=== PATIENT | male | born 1965 | race Caucasian/White ===

== ENCOUNTER 2019-08-09 21:26 | Inpatient (IN) | payer BC, OTHER ==
--- NOTE | 2019-08-09 22:04 | CR ---
INDICATION: Coughing up blood TECHNIQUE: Two view chest. FINDINGS: The lungs are clear. The heart, mediastinum and pulmonary vessels are of normal size. There is no evidence of pleural disease. Low lung volumes. Basilar atelectasis. IMPRESSION: Basilar atelectasis Dictated by Adrianna Medina MD @ Aug 09 2019 10:03PM Signed by Dr. Adrianna Medina @ Aug 09 2019 10:03PM
--- NOTE | 2019-08-09 22:42 | EDM.PDOC ---
ED HPI GENERAL MEDICAL PROBLEM - General Chief Complaint: Respiratory Problem Stated Complaint: COUGH Time Seen by Provider: 08/09/19 22:32 Source of Information: Reports: Patient History Limitations: Reports: No Limitations - History of Present Illness INITIAL COMMENTS - FREE TEXT/NARRATIVE: 53-year-old gentleman presents emergency room chief complaint of coughing for a week and a low-grade fever. Patient states he has had a history of pneumonias in the past. He denies any travel history, denies any exposure to any sick people. Duration: Week(s):, Getting Worse Location: Reports: Chest Quality: Reports: Ache Severity: Moderate Improves with: Reports: None Worsens with: Reports: None Associated Symptoms: Reports: Cough, Weakness lungs Pain Score (Numeric/FACES): 5 - Related Data Allergies Allergy/AdvReac Type Severity Reaction Status Date / Time bacitracin Allergy Hives Verified 08/09/19 22:09 diphenhydramine Allergy Anaphylactic Verified 08/09/19 22:09 [From Benadryl] Shock lidocaine Allergy Hives Verified 08/09/19 22:09 Home Meds: Home Meds Ibuprofen mg PO ASDIRECTED PRN 08/09/19 [History] Omeprazole Magnesium [Prilosec Otc] 20 mg PO DAILY 08/09/19 [History] Past Medical History - Infectious Disease History Infectious Disease History: Reports: Chicken Pox - Past Surgical History GI Surgical History: Reports: Appendectomy Musculoskeletal Surgical History: Reports: Other (See Below) Other Musculoskeletal Surgeries/Procedures:: back surgery. right foot surgery Social & Family History - Family History Family Medical History: Noncontributory - Tobacco Use Smoking Status *Q: Never Smoker - Caffeine Use Caffeine Use: Reports: Soda - Recreational Drug Use Recreational Drug Use: No ED ROS GENERAL - Review of Systems Review Of Systems: See Below Constitutional: Reports: No Symptoms. Denies: Fever HEENT: Reports: No Symptoms. Denies: Contact Lenses Respiratory: Reports: No Symptoms, Shortness of Breath Cardiovascular: Reports: No Symptoms Endocrine: Reports: No Symptoms GI/Abdominal: Reports: No Symptoms : Reports: No Symptoms Musculoskeletal: Reports: No Symptoms Skin: Reports: No Symptoms Neurological: Reports: No Symptoms Psychiatric: Reports: No Symptoms, Other Hematologic/Lymphatic: Reports: No Symptoms Immunologic: Reports: No Symptoms ED EXAM, GENERAL - Physical Exam Exam: See Below Exam Limited By: No Limitations General Appearance: Alert, WD/WN, No Apparent Distress Ears: Normal External Exam, Normal Canal, Normal TMs Ear Exam: Bilateral Ear: Auricle Normal, Canal Normal Nose: Normal Inspection, Normal Mucosa Throat/Mouth: Normal Inspection, Normal Lips, Normal Oropharynx Head: Atraumatic, Normocephalic Neck: Normal Inspection, Supple Respiratory/Chest: No Respiratory Distress, Lungs Clear, Normal Breath Sounds, No Accessory Muscle Use Cardiovascular: Normal Peripheral Pulses, Regular Rate, Rhythm, No JVD, No Murmur GI/Abdominal: Normal Bowel Sounds, Soft, Non-Tender, No Distention (Male) Exam: Deferred Rectal (Males) Exam: Deferred Back Exam: Normal Inspection, Full Range of Motion Extremities: Normal Inspection, Normal Range of Motion, No Pedal Edema, Normal Capillary Refill Neurological: Alert, Oriented, CN II-XII Intact, Normal Reflexes Psychiatric: Normal Affect, Normal Mood Skin Exam: Warm, Dry, Intact Course - Vital Signs Text/Narrative:: Presents with a history of a cough. States he has pneumonia in the past. Patient states he been coughing for over a week. Patient has not been out of the country no recent travel. Patient came to the emergency room tachycardic found to have a white count of 27,000 with a temperature 101. Patient had a lactate level that was 1.4 and he was given 2 L of IV fluids. Patient's blood pressure was low in the 80s patient started on antibiotics Levaquin. Chest x- ray was performed which was negative. CT scan of the chest shows a left lower lobe consolidation/pneumonia. Patient's urine has been negative. I have spoken with Dr. Bill who is agreed to admit the patient to the unit ICU. Patient also has coronavirus test that is pending at this time. Last Recorded V/S: Last Vital Signs Temp 100.6 F 08/10/19 00:56 Pulse 103 H 08/10/19 00:56 Resp 18 08/10/19 00:56 BP 101/66 08/10/19 00:56 Pulse Ox 96 08/10/19 00:56 - Orders/Labs/Meds Orders: Active Orders 24 hr Category Date Time Status EKG Documentation Completion [RC] STAT Care 08/09/19 23:38 Active CULTURE BLOOD [BC] Stat Lab 08/09/19 23:45 Received CULTURE BLOOD [BC] Stat Lab 08/09/19 23:55 Received Levofloxacin/Dextrose 5%-Water [Levaquin in D5W 750 MG/ Med 08/10/19 01:37 Active 150 ML] 750 mg Premix Bag 1 bag IV ONETIME Sodium Chloride 0.9% [Normal Saline] 1,000 ml Med 08/09/19 22:45 Active IV ASDIRECTED Sodium Chloride 0.9% [Normal Saline] 1,000 ml Med 08/10/19 00:30 Active IV ASDIRECTED Sodium Chloride 0.9% [Normal Saline] 1,000 ml Med 08/10/19 02:00 Active IV ASDIRECTED Blood Culture x2 Reflex Set [OM.PC] Stat Oth 08/09/19 23:42 Ordered Isolation [COMM] Routine Oth 08/09/19 21:29 Active Medication Orders Sodium Chloride (Normal Saline) 1,000 mls @ 500 mls/hr IV ASDIRECTED [facility] Last Admin: 08/09/19 23:01 Dose: 500 mls/hr Sodium Chloride (Normal Saline) 1,000 mls @ 999 mls/hr IV ASDIRECTED [facility] Last Admin: 08/10/19 00:28 Dose: 999 mls/hr Levofloxacin/Dextrose 750 mg/ (Premix) 150 mls @ 100 mls/hr IV ONETIME ONE Stop: 08/10/19 03:06 Sodium Chloride (Normal Saline) 1,000 mls @ 999 mls/hr IV ASDIRECTED [facility] Labs: Laboratory Tests 08/09/19 08/09/19 08/09/19 Range/Units 23:02 23:02 23:02 WBC 27.85 H (4.0-11.0) K/uL RBC 5.03 (4.50-5.90) M/uL Hgb 16.5 (13.0-17.0) g/dL Hct 46.8 (38.0-50.0) % MCV 93.0 (80.0-98.0) fL MCH 32.8 H (27.0-32.0) pg MCHC 35.3 (31.0-37.0) g/dL RDW Std Deviation 42.5 (28.0-62.0) fl RDW Coeff of Hussain 13 (11.0-15.0) % Plt Count 188 (150-400) K/uL MPV 9.80 (7.40-12.00) fL Neut % (Auto) 89.7 H (48.0-80.0) % Lymph % (Auto) 4.2 L (16.0-40.0) % Randall % (Auto) 6.0 (0.0-15.0) % Eos % (Auto) 0.0 (0.0-7.0) % Baso % (Auto) 0.1 (0.0-1.5) % Neut # (Auto) 25.0 H (1.4-5.7) K/uL Lymph # (Auto) 1.2 (0.6-2.4) K/uL Randall # (Auto) 1.7 H (0.0-0.8) K/uL Eos # (Auto) 0.0 (0.0-0.7) K/uL Baso # (Auto) 0.0 (0.0-0.1) K/uL Nucleated RBC % 0.0 /100WBC Nucleated RBCs # 0 K/uL Lactate (0.20-2.00) mmol/L Sodium 134 L (136-148) mmol/L Potassium 3.8 (3.5-5.1) mmol/L Chloride 97 L (98-107) mmol/L Carbon Dioxide 27.5 (21.0-32.0) mmol/L BUN 20 H (7.0-18.0) mg/dL Creatinine 1.6 H (0.8-1.3) mg/dL Est Cr Clr Drug Dosing 57.26 mL/min Estimated GFR (MDRD) 45.1 ml/min Glucose 118 H (74-106) mg/dL Calcium 9.4 (8.5-10.1) mg/dL Total Bilirubin 1.4 H (0.2-1.0) mg/dL AST 10 L (15-37) IU/L ALT 19 (14-63) IU/L Alkaline Phosphatase 132 H (46-116) U/L Lactate Dehydrogenase 181 (81-234) U/L Total Protein 7.8 (6.4-8.2) g/dL Albumin 3.3 L (3.4-5.0) g/dL Globulin 4.5 H (2.6-4.0) g/dL Albumin/Globulin Ratio 0.7 L (0.9-1.6) Urine Color Urine Appearance Urine pH (5.0-8.0) Ur Specific [place] (1.001-1.035) Urine Protein (NEGATIVE) mg/dL Urine Glucose (UA) (NEGATIVE) mg/dL Urine Ketones (NEGATIVE) mg/dL Urine Occult Blood (NEGATIVE) Urine Nitrite (NEGATIVE) Urine Bilirubin (NEGATIVE) Urine Urobilinogen (<2.0) EU/dL Ur Leukocyte Esterase (NEGATIVE) Urine RBC (0-2/HPF) Urine WBC (0-5/HPF) Ur Epithelial Cells (NONE-FEW) Urine Bacteria (NEGATIVE) Urine Mucus (NONE-MOD) 08/09/19 08/10/19 Range/Units 23:55 00:03 WBC (4.0-11.0) K/uL RBC (4.50-5.90) M/uL Hgb (13.0-17.0) g/dL Hct (38.0-50.0) % MCV (80.0-98.0) fL MCH (27.0-32.0) pg MCHC (31.0-37.0) g/dL RDW Std Deviation (28.0-62.0) fl RDW Coeff of Hussain (11.0-15.0) % Plt Count (150-400) K/uL MPV (7.40-12.00) fL Neut % (Auto) (48.0-80.0) % Lymph % (Auto) (16.0-40.0) % Randall % (Auto) (0.0-15.0) % Eos % (Auto) (0.0-7.0) % Baso % (Auto) (0.0-1.5) % Neut # (Auto) (1.4-5.7) K/uL Lymph # (Auto) (0.6-2.4) K/uL Randall # (Auto) (0.0-0.8) K/uL Eos # (Auto) (0.0-0.7) K/uL Baso # (Auto) (0.0-0.1) K/uL Nucleated RBC % /100WBC Nucleated RBCs # K/uL Lactate 1.4 (0.20-2.00) mmol/L Sodium (136-148) mmol/L Potassium (3.5-5.1) mmol/L Chloride (98-107) mmol/L Carbon Dioxide (21.0-32.0) mmol/L BUN (7.0-18.0) mg/dL Creatinine (0.8-1.3) mg/dL Est Cr Clr Drug Dosing mL/min Estimated GFR (MDRD) ml/min Glucose (74-106) mg/dL Calcium (8.5-10.1) mg/dL Total Bilirubin (0.2-1.0) mg/dL AST (15-37) IU/L ALT (14-63) IU/L Alkaline Phosphatase (46-116) U/L Lactate Dehydrogenase (81-234) U/L Total Protein (6.4-8.2) g/dL Albumin (3.4-5.0) g/dL Globulin (2.6-4.0) g/dL Albumin/Globulin Ratio (0.9-1.6) Urine Color DARK YELLOW Urine Appearance CLEAR Urine pH 6.0 (5.0-8.0) Ur Specific [place] >= 1.030 (1.001-1.035) Urine Protein 100 H (NEGATIVE) mg/dL Urine Glucose (UA) NEGATIVE (NEGATIVE) mg/dL Urine Ketones 15 H (NEGATIVE) mg/dL Urine Occult Blood TRACE-INTACT H (NEGATIVE) Urine Nitrite NEGATIVE (NEGATIVE) Urine Bilirubin NEGATIVE (NEGATIVE) Urine Urobilinogen 2.0 H (<2.0) EU/dL Ur Leukocyte Esterase NEGATIVE (NEGATIVE) Urine RBC 0-2 (0-2/HPF) Urine WBC 0-1 (0-5/HPF) Ur Epithelial Cells RARE (NONE-FEW) Urine Bacteria RARE (NEGATIVE) Urine Mucus LIGHT (NONE-MOD) Meds: Medications Generic Name Dose Route Start Last Admin Trade Name Freq PRN Reason Stop Dose Admin Sodium Chloride 1,000 mls @ 500 mls/hr 08/09/19 22:45 08/09/19 23:01 Normal Saline IV 500 mls/hr ASDIRECTED RADHA Administration Sodium Chloride 1,000 mls @ 999 mls/hr 08/10/19 00:30 08/10/19 00:28 Normal Saline IV 999 mls/hr ASDIRECTED RADHA Administration Levofloxacin/Dextrose 750 mg/ 150 mls @ 100 mls/hr 08/10/19 01:37 Premix IV 08/10/19 03:06 ONETIME ONE Sodium Chloride 1,000 mls @ 999 mls/hr 08/10/19 02:00 Normal Saline IV ASDIRECTED RADHA Discontinued Medications Generic Name Dose Route Start Last Admin Trade Name Magi PRN Reason Stop Dose Admin Iopamidol 100 ml 08/10/19 00:15 08/10/19 00:24 Isovue-370 (76%) IVPUSH 08/10/19 00:16 100 ml ONETIME STA Administration Ketorolac Tromethamine 30 mg 08/09/19 23:11 08/09/19 23:12 Toradol IVPUSH 08/09/19 23:12 30 mg ONETIME ONE Administration Departure - Departure Time of Disposition: 02:00 Disposition: Admitted As Inpatient 64 Condition: Fair Clinical Impression: Hypotension Pneumonia Qualifiers: Laterality: left Lung location: lower lobe of lung - Discharge Information Referrals: Keaton Zhou MD [Primary Care Provider] - Forms: ED Department Discharge Sepsis Event Note - Evaluation Sepsis Screening Result: Possible Sepsis Risk - Focused Exam Vital Signs: Vital Signs Temp Temp Pulse Resp BP Pulse Ox 08/10/19 00:56 100.6 F 103 H 18 101/66 96 08/10/19 00:33 99/58 L 08/10/19 00:01 101.4 F H 08/09/19 23:43 98.8 F 109 H 20 91/49 L 92 L 08/09/19 22:10 100.7 F H 127 H 18 112/66 96 Date Exam was Performed: 08/10/19 Time Exam was Performed: 01:54 - My Orders Last 24 Hours: My Active Orders 08/09/19 22:45 Sodium Chloride 0.9% [Normal Saline] 1,000 ml IV ASDIRECTED 08/09/19 23:38 EKG Documentation Completion [RC] STAT 08/09/19 23:42 Blood Culture x2 Reflex Set [OM.PC] Stat 08/09/19 23:45 CULTURE BLOOD [BC] Stat 08/09/19 23:55 CULTURE BLOOD [BC] Stat 08/10/19 00:30 Sodium Chloride 0.9% [Normal Saline] 1,000 ml IV ASDIRECTED 08/10/19 01:37 Levofloxacin/Dextrose 5%-Water [Levaquin in D5W 750 MG/150 ML] 750 mg Premix Bag 1 bag IV ONETIME 08/10/19 02:00 Sodium Chloride 0.9% [Normal Saline] 1,000 ml IV ASDIRECTED - Assessment/Plan Last 24 Hours: My Active Orders 08/09/19 22:45 Sodium Chloride 0.9% [Normal Saline] 1,000 ml IV ASDIRECTED 08/09/19 23:38 EKG Documentation Completion [RC] STAT 08/09/19 23:42 Blood Culture x2 Reflex Set [OM.PC] Stat 08/09/19 23:45 CULTURE BLOOD [BC] Stat 08/09/19 23:55 CULTURE BLOOD [BC] Stat 08/10/19 00:30 Sodium Chloride 0.9% [Normal Saline] 1,000 ml IV ASDIRECTED 08/10/19 01:37 Levofloxacin/Dextrose 5%-Water [Levaquin in D5W 750 MG/150 ML] 750 mg Premix Bag 1 bag IV ONETIME 08/10/19 02:00 Sodium Chloride 0.9% [Normal Saline] 1,000 ml IV ASDIRECTED
[2019-08-09] MEDS ORDERED: Sodium Chloride 0.9% 1,000 ML IV SCH (22:45)
[2019-08-09] MEDS ORDERED: Ketorolac 30 MG/ML SDV IM ONE (23:06)
[2019-08-09] MEDS ORDERED: Ketorolac 30 MG/ML SDV IVPUSH ONE (23:11)
[2019-08-09 23:25] LABS: CARBON DIOXIDE,CO2 27.5 mmol/L (21.0-32.0); POTASSIUM,K 3.8 mmol/L (3.5-5.1)
[2019-08-10] MEDS ORDERED: Iopamidol 755 Mg/ML 100 ML Bottle IVPUSH STA (00:15)
[2019-08-10] MEDS ORDERED: Sodium Chloride 0.9% 1,000 ML IV SCH ×2 (00:30→02:00)
[2019-08-10] MEDS ORDERED: Sodium Chloride 0.9% 1,000 ML IV ONE (01:00)
[2019-08-10] MEDS ORDERED: Levofloxacin/Dextrose 5%-Water 750 MG in Premix Bag 1 BAG IV ONE (01:37)
--- NOTE | 2019-08-10 01:49 | CT ---
INDICATION: Chest pain. Hemoptysis. TECHNIQUE: CT chest pulmonary PE protocol acquired with IV contrast. 100 mL of Isovue 370 administered. COMPARISON: None FINDINGS: Cardiovascular structures: Limited opacification of some distal segmental and subsegmental pulmonary arteries. No large, central or proximal segmental pulmonary embolus. Normal cardiac size and aortic caliber. Mediastinum and bea: Mildly prominent and borderline subcarinal, azygoesophageal and left hilar lymph nodes, measuring up to 1.2 cm in short axis. A small to moderate hiatal hernia. Small fluid in the distal esophagus suggestive of reflux. Lungs: Dense consolidation in the posterior left lower lobe, with air bronchograms, and ill-defined adjacent ground-glass infiltrates, consistent with pneumonia. Foci of subsegmental atelectasis. Pleura and pericardium: No pleural effusions. Mild anterior pericardial thickening versus tiny fluid. Chest wall and axilla: No mass or adenopathy. Upper abdomen: Mild splenomegaly measuring 13.8 cm anteroposteriorly. Bones: No significant findings. IMPRESSION: No CT evidence of a large, central or proximal segmental pulmonary embolus. Left lower lobe pneumonia. Dictated by Andrei Park MD @ 08/10/2019 1:45:14 AM Please note that all CT scans at this facility use dose modulation, iterative reconstruction, and/or weight-based dosing when appropriate to reduce radiation dose to as low as reasonably achievable. Dictated by: Andrei Park MD @ 08/10/2019 01:47:14 (Electronically Signed)
[2019-08-10] MEDS ORDERED: Acetaminophen 325 MG Tab PO PRN (03:34)
[2019-08-10] MEDS ORDERED: Acetaminophen 325 MG Tab ONE (03:39)
[2019-08-10] MEDS: Sodium Chloride 0.9% 1,000 ML IV SCH ×3 (03:49→19:51)
--- NOTE | 2019-08-10 04:50 | PN ---
THC Physician - Brief Progress [id number]/16/2020 04:47[facility] [place], [place] - [place] ([place]ETH SMITHDate of Service 08/10/2019 04:47HPI/Events of Note eICUSeen on cameraSpoke w RNBP 95/55, sat 94 on NCPt w PNAGot 3L bolusLA normalOn RACan start levo if MaP <65Given levaquin once day team can decide on further abxInterventions Intermediate-Resp iratory distress - evaluation and managementElectronically Signed by: Alexandre Yip) on 0 04:49
[2019-08-10] MEDS: Enoxaparin 40 MG/0.4 ML Syringe SUBCUT SCH (05:12)
--- NOTE | 2019-08-10 05:30 | PCM.HP.2 ---
H&P History of Present Illness - General Date of Service: 08/10/19 Admit Problem/Dx: Admission Diagnosis/Problem Admission Diagnosis/Problem Pneumonia - History of Present Illness Initial Comments - Free Text/Narative: 53 yo male who presented with three day history of shortness of breath, fever, myalgias, productive cough and left lower rib pain. In the ED he was noted have a temp of 38.6, BP of 90s/50s. WBC of 27,000, Creatinine of 1.[address] and normal lactic acid. CT chest was negative for PE but showed left lower lobe pneumonia. Patient was given three liters of normal saline and Levaquin in the ED. lungs Pain Score (Numeric/FACES): 5 - Related Data Allergies/Adverse Reactions: Allergies Allergy/AdvReac Type Severity Reaction Status Date / Time bacitracin Allergy Hives Verified 08/09/19 22:09 diphenhydramine Allergy Anaphylactic Verified 08/09/19 22:09 [From Benadryl] Shock lidocaine Allergy Hives Verified 08/09/19 22:09 Home Medications: Home Meds Ibuprofen 400 mg PO DAILY PRN 08/09/19 [History] Omeprazole Magnesium [Prilosec Otc] 20 mg PO DAILY 08/09/19 [History] Past Medical History Respiratory History: Reports: Pneumonia, Recurrent Gastrointestinal History: Reports: GERD - Infectious Disease History Infectious Disease History: Reports: Chicken Pox - Past Surgical History Respiratory Surgical History: Reports: None GI Surgical History: Reports: Appendectomy Musculoskeletal Surgical History: Reports: Other (See Below) Other Musculoskeletal Surgeries/Procedures:: back surgery x3. right foot surgery Social & Family History - Family History Family Medical History: Noncontributory - Tobacco Use Smoking Status *Q: Never Smoker Second Hand Smoke Exposure: No - Caffeine Use Caffeine Use: Reports: Soda - Alcohol Use Date of Last Drink: 07/27/19 - Recreational Drug Use Recreational Drug Use: No H&P Review of Systems - Review of Systems: Review Of Systems: Comprehensive ROS is negative, except as noted in HPI. Exam - Exam Exam: See Below - Vital Signs Vital Signs: Last Vital Signs Temp 36.7 C 08/10/19 05:00 Pulse 103 H 08/10/19 02:03 Resp 18 08/10/19 05:00 BP 91/52 L 08/10/19 05:00 Pulse Ox 92 L 08/10/19 05:00 Weight: 91.49 kg - Exam General: Alert, Oriented HEENT: Mucosa Moist & [place] Lungs: Clear to Auscultation, Normal Respiratory Effort Cardiovascular: Regular Rate, Regular Rhythm GI/Abdominal Exam: Normal Bowel Sounds, Soft, Non-Tender Extremities: Non-Tender, No Pedal Edema Skin: Warm, Dry, Intact Neurological: No: Focal Deficit - Patient Data Lab Results Last 24 hrs: Laboratory Results - last 24 hr 08/09/19 08/09/19 08/09/19 Range/Units 23:02 23:02 23:02 WBC 27.85 H (4.0-11.0) K/uL RBC 5.03 (4.50-5.90) M/uL Hgb 16.5 (13.0-17.0) g/dL Hct 46.8 (38.0-50.0) % MCV 93.0 (80.0-98.0) fL MCH 32.8 H (27.0-32.0) pg MCHC 35.3 (31.0-37.0) g/dL RDW Std Deviation 42.5 (28.0-62.0) fl RDW Coeff of Hussain 13 (11.0-15.0) % Plt Count 188 (150-400) K/uL MPV 9.80 (7.40-12.00) fL Neut % (Auto) 89.7 H (48.0-80.0) % Lymph % (Auto) 4.2 L (16.0-40.0) % [place] % (Auto) 6.0 (0.0-15.0) % Eos % (Auto) 0.0 (0.0-7.0) % Baso % (Auto) 0.1 (0.0-1.5) % Neut # (Auto) 25.0 H (1.4-5.7) K/uL Lymph # (Auto) 1.2 (0.6-2.4) K/uL [place] # (Auto) 1.7 H (0.0-0.8) K/uL Eos # (Auto) 0.0 (0.0-0.7) K/uL Baso # (Auto) 0.0 (0.0-0.1) K/uL Nucleated RBC % 0.0 /100WBC Nucleated RBCs # 0 K/uL Lactate (0.20-2.00) mmol/L Sodium 134 L (136-148) mmol/L Potassium 3.8 (3.5-5.1) mmol/L Chloride 97 L (98-107) mmol/L Carbon Dioxide 27.5 (21.0-32.0) mmol/L BUN 20 H (7.0-18.0) mg/dL Creatinine 1.6 H (0.8-1.3) mg/dL Est Cr Clr Drug Dosing 57.26 mL/min Estimated GFR (MDRD) 45.1 ml/min Glucose 118 H (74-106) mg/dL Calcium 9.4 (8.5-10.1) mg/dL Total Bilirubin 1.4 H (0.2-1.0) mg/dL AST 10 L (15-37) IU/L ALT 19 (14-63) IU/L Alkaline Phosphatase 132 H (46-116) U/L Lactate Dehydrogenase 181 (81-234) U/L Total Protein 7.8 (6.4-8.2) g/dL Albumin 3.3 L (3.4-5.0) g/dL Globulin 4.5 H (2.6-4.0) g/dL Albumin/Globulin Ratio 0.7 L (0.9-1.6) Urine Color Urine Appearance Urine pH (5.0-8.0) Ur Specific [place] (1.001-1.035) Urine Protein (NEGATIVE) mg/dL Urine Glucose (UA) (NEGATIVE) mg/dL Urine Ketones (NEGATIVE) mg/dL Urine Occult Blood (NEGATIVE) Urine Nitrite (NEGATIVE) Urine Bilirubin (NEGATIVE) Urine Urobilinogen (<2.0) EU/dL Ur Leukocyte Esterase (NEGATIVE) Urine RBC (0-2/HPF) Urine WBC (0-5/HPF) Ur Epithelial Cells (NONE-FEW) Urine Bacteria (NEGATIVE) Urine Mucus (NONE-MOD) 08/09/19 08/10/19 Range/Units 23:55 00:03 WBC (4.0-11.0) K/uL RBC (4.50-5.90) M/uL Hgb (13.0-17.0) g/dL Hct (38.0-50.0) % MCV (80.0-98.0) fL MCH (27.0-32.0) pg MCHC (31.0-37.0) g/dL RDW Std Deviation (28.0-62.0) fl RDW Coeff of Hussain (11.0-15.0) % Plt Count (150-400) K/uL MPV (7.40-12.00) fL Neut % (Auto) (48.0-80.0) % Lymph % (Auto) (16.0-40.0) % [place] % (Auto) (0.0-15.0) % Eos % (Auto) (0.0-7.0) % Baso % (Auto) (0.0-1.5) % Neut # (Auto) (1.4-5.7) K/uL Lymph # (Auto) (0.6-2.4) K/uL [place] # (Auto) (0.0-0.8) K/uL Eos # (Auto) (0.0-0.7) K/uL Baso # (Auto) (0.0-0.1) K/uL Nucleated RBC % /100WBC Nucleated RBCs # K/uL Lactate 1.4 (0.20-2.00) mmol/L Sodium (136-148) mmol/L Potassium (3.5-5.1) mmol/L Chloride (98-107) mmol/L Carbon Dioxide (21.0-32.0) mmol/L BUN (7.0-18.0) mg/dL Creatinine (0.8-1.3) mg/dL Est Cr Clr Drug Dosing mL/min Estimated GFR (MDRD) ml/min Glucose (74-106) mg/dL Calcium (8.5-10.1) mg/dL Total Bilirubin (0.2-1.0) mg/dL AST (15-37) IU/L ALT (14-63) IU/L Alkaline Phosphatase (46-116) U/L Lactate Dehydrogenase (81-234) U/L Total Protein (6.4-8.2) g/dL Albumin (3.4-5.0) g/dL Globulin (2.6-4.0) g/dL Albumin/Globulin Ratio (0.9-1.6) Urine Color DARK YELLOW Urine Appearance CLEAR Urine pH 6.0 (5.0-8.0) Ur Specific [place] >= 1.030 (1.001-1.035) Urine Protein 100 H (NEGATIVE) mg/dL Urine Glucose (UA) NEGATIVE (NEGATIVE) mg/dL Urine Ketones 15 H (NEGATIVE) mg/dL Urine Occult Blood TRACE-INTACT H (NEGATIVE) Urine Nitrite NEGATIVE (NEGATIVE) Urine Bilirubin NEGATIVE (NEGATIVE) Urine Urobilinogen 2.0 H (<2.0) EU/dL Ur Leukocyte Esterase NEGATIVE (NEGATIVE) Urine RBC 0-2 (0-2/HPF) Urine WBC 0-1 (0-5/HPF) Ur Epithelial Cells RARE (NONE-FEW) Urine Bacteria RARE (NEGATIVE) Urine Mucus LIGHT (NONE-MOD) Result Diagrams: 08/11/19 05:30 08/11/19 05:30 Nate Results Last 24 hrs: Microbiology 08/09/19 21:16 Influenza Type A Antigen Screen - Final Nasopharyngeal Swab NEGATIVE INFLUENZA A VIRUS AG REFERENCE RANGE: NEGATIVE Influenza Type B Antigen Screen - Final NEGATIVE INFLUENZA B VIRUS AG REFERENCE RANGE: NEGATIVE Sepsis Event Note - Evaluation Sepsis Screening Result: Possible Sepsis Risk - Focused Exam Vital Signs: Vital Signs Temp Temp Temp Pulse Resp BP BP 08/10/19 05:00 36.7 C 18 91/52 L 08/10/19 04:00 38 C 22 H 91/57 L 08/10/19 03:44 38 C 08/10/19 03:43 38 C 08/10/19 03:00 20 100/65 08/10/19 02:03 103 H 17 102/62 08/10/19 00:56 38.1 C 103 H 18 101/66 08/10/19 00:33 99/58 L 08/10/19 00:01 38.6 C H 08/09/19 23:43 37.1 C 109 H 20 91/49 L 08/09/19 22:10 38.2 C H 127 H 18 112/66 Pulse Ox 08/10/19 05:00 92 L 08/10/19 04:00 95 08/10/19 03:44 08/10/19 03:43 08/10/19 03:00 95 08/10/19 02:03 98 08/10/19 00:56 96 08/10/19 00:33 08/10/19 00:01 08/09/19 23:43 92 L 08/09/19 22:10 96 Date Exam was Performed: 08/11/19 Time Exam was Performed: 08:21 Problem List Initiated/Reviewed/Updated: Yes Orders Last 24hrs: Active Orders 24 hr Category Date Time Status Admission Status [Patient Status] [ADT] Stat ADT 08/10/19 02:03 Active Antiembolic Devices [RC] PER UNIT ROUTINE Care 08/10/19 05:24 Ordered Oxygen Therapy [RC] PRN Care 08/10/19 05:23 Ordered Up ad Gauri [RC] ASDIRECTED Care 08/10/19 05:23 Ordered VTE/DVT Education [RC] PER UNIT ROUTINE Care 08/10/19 05:23 Ordered Vital Signs [RC] Q4H Care 08/10/19 05:23 Ordered Regular Diet [DIET] Diet 08/10/19 Breakfast Active BASIC METABOLIC PANEL,BMP [CHEM] AM Lab 08/11/19 05:11 Ordered CBC WITH AUTO DIFF [HEME] AM Lab 08/11/19 05:11 Ordered CBC WITH AUTO DIFF [HEME] Routine Lab 08/10/19 13:00 Ordered CORONAVIRUS (COVID-19) PCR [MREF] Stat Lab 08/10/19 02:00 Received CULTURE BLOOD [BC] Stat Lab 08/09/19 23:45 Received CULTURE BLOOD [BC] Stat Lab 08/09/19 23:55 Received Acetaminophen [Tylenol] Med 08/10/19 03:34 Active 650 mg PO Q6H PRN Enoxaparin [Lovenox] Med 08/10/19 04:45 Active 40 mg SUBCUT Q24H Ibuprofen [Motrin] Med 08/10/19 05:24 Ordered 400 mg PO Q6H PRN Levofloxacin/Dextrose 5%-Water [Levaquin in D5W 750 MG/ Med 08/11/19 01:00 Ordered 150 ML] 750 mg Premix Bag 1 bag IV Q24H Norepinephrine Bit/0.9 % NaCl [Norepinephr-0.9% NaCl 4 Med 08/10/19 05:00 Active mg/250] 4 mg in 250 ml IV TITRATE Sodium Chloride 0.9% [Normal Saline] 1,000 ml Med 08/10/19 03:45 Active IV ASDIRECTED oxyCODONE Med 08/10/19 05:25 Ordered 5 mg PO Q4H PRN Blood Culture x2 Reflex Set [OM.PC] Stat Oth 08/09/19 23:42 Ordered Isolation [COMM] Routine Oth 08/10/19 03:57 Active Sequential Compression Device [OM.PC] Per Unit Routine Oth 08/10/19 05:23 Ordered Resuscitation Status Routine Resus Stat 08/10/19 05:23 Ordered Medication Orders Acetaminophen (Tylenol) 650 mg PO Q6H PRN PRN Reason: Pain Last Admin: 08/10/19 03:44 Dose: 650 mg Enoxaparin Sodium (Lovenox) 40 mg SUBCUT Q24H RADHA Last Admin: 08/10/19 05:12 Dose: 40 mg Sodium Chloride (Normal Saline) 1,000 mls @ 125 mls/hr IV ASDIRECTED RADHA Last Admin: 08/10/19 03:49 Dose: 125 mls/hr Norepinephrine Bitartrate (Norepinephr-0.9% Nacl 4 Mg/250) 4 mg in 250 mls @ 7.5 mls/hr IV TITRATE RADHA; Protocol Assessment/Plan Comment:: 53 yo male admitted for sepsis from community acquired pneumonia. Patient's blood pressure has improved with fluid boluses. We will treat pneumonia with levaquin. Cultures are pending.
[2019-08-10] MEDS: oxyCODONE 5 MG Tab PO PRN ×3 (06:33→17:15)
[2019-08-10] MEDS: Piperacillin/Tazobactam 3.375 GM in Sodium Chloride 0.9% 50 ML IV SCH ×3 (09:02→19:47)
[2019-08-10] MEDS: Ibuprofen 400 MG Tab PO PRN ×2 (09:10→22:17)
[2019-08-10] MEDS ORDERED: Omeprazole 20 MG Cap.CR PO SCH (09:45)
[2019-08-10] MEDS ORDERED: Calcium Carbonate 500 MG Tab.Chew PO PRN (20:04)
[2019-08-11] MEDS: Levofloxacin/Dextrose 5%-Water 750 MG in Premix Bag 1 BAG IV SCH (00:03)
[2019-08-11] MEDS: Metoclopramide 10 MG/2 ML SDV IVPUSH ONE ×2 (00:24→01:05)
[2019-08-11] MEDS: Piperacillin/Tazobactam 3.375 GM in Sodium Chloride 0.9% 50 ML IV SCH ×4 (01:35→19:52)
[2019-08-11] MEDS: Enoxaparin 40 MG/0.4 ML Syringe SUBCUT SCH (03:49)
[2019-08-11] MEDS ORDERED: Metoclopramide 10 MG/2 ML SDV IVPUSH ONE (04:25)
[2019-08-11 06:32] LABS: BLOOD UREA NITROGEN,BUN 19 mg/dL (7.0-18.0); CARBON DIOXIDE,CO2 23.7 mmol/L (21.0-32.0); CHLORIDE,CL 107 mmol/L (98-107); GLUCOSE RANDOM 101 mg/dL (74-106); POTASSIUM,K 3.7 mmol/L (3.5-5.1); SODIUM,NA 140 mmol/L (136-148)
[2019-08-11] MEDS: Sodium Chloride 0.9% 1,000 ML IV SCH ×2 (06:35→15:26)
[2019-08-11] MEDS: Omeprazole 20 MG Cap.CR PO SCH (07:59)
--- NOTE | 2019-08-11 08:24 | PCM.PN ---
- General Info Date of Service: 08/11/19 - Review of Systems Systems Review Comment:: fever improving, feeling better, breathing has improved, but reports pain with cough. - Patient Data Vitals - Most Recent: Last Vital Signs Temp 36.6 C 08/11/19 08:00 Pulse 74 08/11/19 07:00 Resp 16 08/11/19 08:00 BP 116/83 08/11/19 08:00 Pulse Ox 99 08/11/19 08:00 Weight - Most Recent: 91.49 kg I&O - Last 24 Hours: Intake & Output 08/10/19 08/11/19 08/11/19 22:59 06:59 14:59 Intake Total 2857 1511 Output Total 1320 Balance 1537 1511 Lab Results Last 24 Hours: Laboratory Results - last 24 hr 08/10/19 08/11/19 08/11/19 Range/Units 13:12 05:30 05:30 WBC 19.28 H 13.08 H (4.0-11.0) K/uL RBC 4.26 L 4.23 L (4.50-5.90) M/uL Hgb 13.5 13.5 (13.0-17.0) g/dL Hct 39.6 39.1 (38.0-50.0) % MCV 93.0 92.4 (80.0-98.0) fL MCH 31.7 31.9 (27.0-32.0) pg MCHC 34.1 34.5 (31.0-37.0) g/dL RDW Std Deviation 42.5 43.3 (28.0-62.0) fl RDW Coeff of Hussain 13 13 (11.0-15.0) % Plt Count 155 178 (150-400) K/uL MPV 10.00 10.20 (7.40-12.00) fL Neut % (Auto) 87.1 H 78.2 (48.0-80.0) % Lymph % (Auto) 6.1 L 12.5 L (16.0-40.0) % Coal % (Auto) 6.6 8.3 (0.0-15.0) % Eos % (Auto) 0.1 0.8 (0.0-7.0) % Baso % (Auto) 0.1 0.2 (0.0-1.5) % Neut # (Auto) 16.8 H 10.2 H (1.4-5.7) K/uL Lymph # (Auto) 1.2 1.6 (0.6-2.4) K/uL Coal # (Auto) 1.3 H 1.1 H (0.0-0.8) K/uL Eos # (Auto) 0.0 0.1 (0.0-0.7) K/uL Baso # (Auto) 0.0 0.0 (0.0-0.1) K/uL Nucleated RBC % 0.0 0.0 /100WBC Nucleated RBCs # 0 0 K/uL Sodium 140 (136-148) mmol/L Potassium 3.7 (3.5-5.1) mmol/L Chloride 107 (98-107) mmol/L Carbon Dioxide 23.7 (21.0-32.0) mmol/L BUN 19 H (7.0-18.0) mg/dL Creatinine 1.0 (0.8-1.3) mg/dL Est Cr Clr Drug Dosing 91.61 mL/min Estimated GFR (MDRD) > 60.0 ml/min Glucose 101 (74-106) mg/dL Calcium 8.4 L (8.5-10.1) mg/dL Nate Results Last 24 Hours: Microbiology 08/09/19 23:55 Aerobic Blood Culture - Preliminary Blood - Venous - Lab Draw NO GROWTH AFTER 1 DAY Anaerobic Blood Culture - Preliminary NO GROWTH AFTER 1 DAY 08/09/19 23:45 Aerobic Blood Culture - Preliminary Blood - Venous NO GROWTH AFTER 1 DAY Anaerobic Blood Culture - Preliminary NO GROWTH AFTER 1 DAY Med Orders - Current: Current Medications Acetaminophen (Tylenol) 650 mg PO Q6H PRN PRN Reason: Pain Last Admin: 08/10/19 03:44 Dose: 650 mg Calcium Carbonate/Glycine (Tums) 500 mg PO TID PRN PRN Reason: Indigestion Last Admin: 08/10/19 20:13 Dose: 1,000 mg Enoxaparin Sodium (Lovenox) 40 mg SUBCUT Q24H [facility] Last Admin: 08/11/19 03:49 Dose: 40 mg Sodium Chloride (Normal Saline) 1,000 mls @ 125 mls/hr IV ASDIRECTED [facility] Last Admin: 08/11/19 06:35 Dose: 125 mls/hr Norepinephrine Bitartrate (Norepinephr-0.9% Nacl 4 Mg/250) 4 mg in 250 mls @ 7.5 mls/hr IV TITRATE [facility]; Protocol Last Titration: 08/11/19 04:00 Dose: 0 mcg/min, 0 mls/hr Levofloxacin/Dextrose 750 mg/ (Premix) 150 mls @ 100 mls/hr IV Q24H [facility] Last Admin: 08/11/19 00:03 Dose: 100 mls/hr Piperacillin Sod/Tazobactam (Sod 3.375 gm/ Sodium Chloride) 50 mls @ 100 mls/ hr IV Q6H [facility] Last Admin: 08/11/19 07:58 Dose: 100 mls/hr Ibuprofen (Motrin) 400 mg PO Q6H PRN PRN Reason: Pain Last Admin: 08/10/19 22:17 Dose: 400 mg Omeprazole (Omeprazole) 20 mg PO ACBREAKFAST [facility] Last Admin: 08/11/19 07:59 Dose: 20 mg Oxycodone HCl (Oxycodone) 5 mg PO Q4H PRN PRN Reason: Pain Last Admin: 08/10/19 17:15 Dose: 5 mg Discontinued Medications Acetaminophen (Tylenol) Confirm Administered Dose 650 mg .ROUTE .STK-MED ONE Stop: 08/10/19 03:40 Last Admin: 08/10/19 03:43 Dose: Not Given Sodium Chloride (Normal Saline) 1,000 mls @ 500 mls/hr IV ASDIRECTED [facility] Last Admin: 08/09/19 23:01 Dose: 500 mls/hr Sodium Chloride (Normal Saline) 1,000 mls @ 999 mls/hr IV ASDIRECTED [facility] Last Admin: 08/10/19 00:28 Dose: 999 mls/hr Levofloxacin/Dextrose 750 mg/ (Premix) 150 mls @ 100 mls/hr IV ONETIME ONE Stop: 08/10/19 03:06 Last Admin: 08/10/19 01:55 Dose: 100 mls/hr Sodium Chloride (Normal Saline) 1,000 mls @ 999 mls/hr IV ASDIRECTED [facility] Sodium Chloride (Normal Saline) 1,000 mls @ 999 mls/hr IV .Bolus ONE Stop: 08/10/19 02:00 Last Admin: 08/10/19 02:02 Dose: 999 mls/hr Iopamidol (Isovue-370 (76%)) 100 ml IVPUSH ONETIME STA Stop: 08/10/19 00:16 Last Admin: 08/10/19 00:24 Dose: 100 ml Ketorolac Tromethamine (Toradol) 30 mg IVPUSH ONETIME ONE Stop: 08/09/19 23:12 Last Admin: 08/09/19 23:12 Dose: 30 mg Metoclopramide HCl (Reglan) 5 mg IVPUSH ONETIME ONE Stop: 08/11/19 00:03 Last Admin: 08/11/19 00:24 Dose: Not Given Metoclopramide HCl (Reglan) 5 mg IVPUSH ONETIME ONE Stop: 08/11/19 04:26 Last Admin: 08/11/19 04:33 Dose: 5 mg Omeprazole (Omeprazole) 20 mg PO DAILY [facility] Last Admin: 08/10/19 10:03 Dose: 20 mg - Exam General: Alert, Oriented Neck: Supple Lungs: Clear to Auscultation, Normal Respiratory Effort Cardiovascular: Regular Rate, Regular Rhythm Extremities: Non-Tender, No Pedal Edema Skin: Warm, Dry, Intact Neurological: No New Focal Deficit Sepsis Event Note - Evaluation Sepsis Screening Result: Possible Sepsis Risk - Focused Exam Vital Signs: Vital Signs Temp Temp Pulse Resp BP Pulse Ox Pulse Ox 08/11/19 08:00 36.6 C 16 116/83 99 08/11/19 07:00 74 16 113/72 95 08/11/19 06:00 75 18 93/49 L 98 08/11/19 05:23 98 08/11/19 05:00 74 19 102/69 97 08/11/19 04:00 36.4 C 75 14 105/74 97 08/11/19 03:00 69 18 103/68 98 08/11/19 02:00 71 13 85/48 L 95 08/11/19 01:00 70 22 H 88/62 L 95 08/11/19 00:00 36.1 C 72 17 91/62 97 08/10/19 23:00 79 22 H 93 L 08/10/19 22:00 81 20 105/65 98 08/10/19 21:00 80 20 111/74 98 Date Exam was Performed: 08/11/19 Time Exam was Performed: 08:21 - Problem List Review Problem List Initiated/Reviewed/Updated: Yes - My Orders Last 24 Hours: My Active Orders 08/10/19 08:15 Piperacillin/Tazobactam [Piperacil-Tazobact] 3.375 gm Sodium Chloride 0.9% [ Normal Saline] 50 ml IV Q6H 08/10/19 20:04 Calcium Carbonate [Tums] 500 mg PO TID PRN 08/11/19 01:00 Levofloxacin/Dextrose 5%-Water [Levaquin in D5W 750 MG/150 ML] 750 mg Premix Bag 1 bag IV Q24H - Plan Plan:: 53 yo male admitted for sepsis from community acquired pneumonia. We will continue Levaquin and Zosyn. Patient on Levophed briefly last night. Cultures pending.
--- NOTE | 2019-08-11 08:33 | PN ---
THC Physician - Brief Progress [id number]/17/2020 08:18[facility] Marilou Villagran [place] - [facility] ([facility] ARAIZADate of Service 08/11/2019 08:18HPI/Events of Note eICU progress [id number] male who presented with typical lower upper respiratory symptom s found to have left lower lobe pneumonia. Patient initially required 3 L of oxygen which was transi tioned to room air and also started on Levaquin which was brought into Zosyn and Levaquin the next mo rning. On review of EMR no acute events overnight.Patient seen on camera this morning, currently on his phone in no acute distress, on room air conversing with bedside team.Vital signs reviewed, HR 97, BP 116/83 saturation 99%Labs/EMR/imaging reviewedLeft lower lobe pneumonia-Patient has been able to be weaned to room air and currently leukocytosis downtrending from 27k to 13k-Currently on Zosyn and Levaquin. If patient has no risk factors for hospital-acquired pneumonia then recommend de-escalatin g to regimen without pseudomonal coverage (ceftriaxone and azithromycin).-Recommend duo nebs as neede d-Recommend total 5-7 days of antibiotic coverage and given significant improvement within 24 hours l ikely 5 days should be sufficient.DVT prophylaxis-Lovenox SQGI prophylaxis-PPIInterventions Major-Inf ection - evaluation and management
[2019-08-11] MEDS ORDERED: Melatonin 3 MG Tab PO PRN (21:50)
[2019-08-11] MEDS: guaiFENesin/Dextromethorphan 100-10 MG/5 ML Soln 10 ML Cup PO PRN (22:01)
[2019-08-12] MEDS: Levofloxacin/Dextrose 5%-Water 750 MG in Premix Bag 1 BAG IV SCH (01:03)
[2019-08-12] MEDS: Piperacillin/Tazobactam 3.375 GM in Sodium Chloride 0.9% 50 ML IV SCH ×2 (02:37→08:50)
[2019-08-12] MEDS: Ibuprofen 400 MG Tab PO PRN ×2 (03:14→21:43)
[2019-08-12] MEDS: Enoxaparin 40 MG/0.4 ML Syringe SUBCUT SCH (04:07)
[2019-08-12] MEDS: Sodium Chloride 0.9% 1,000 ML IV SCH (04:07)
[2019-08-12] MEDS: Omeprazole 20 MG Cap.CR PO SCH (06:29)
[2019-08-12 06:31] LABS: BLOOD UREA NITROGEN,BUN 14 mg/dL (7.0-18.0); CARBON DIOXIDE,CO2 25.3 mmol/L (21.0-32.0); CHLORIDE,CL 108 mmol/L (98-107); GLUCOSE RANDOM 114 mg/dL (74-106); POTASSIUM,K 3.7 mmol/L (3.5-5.1); SODIUM,NA 138 mmol/L (136-148)
--- NOTE | 2019-08-12 06:44 | PN ---
THC Physician - Brief Progress [id number]/18/2020 06:42[facility] Marilou VillagranADDIS - [place] ([place]) - [facility] SMITHDate of Service 08/12/2019 06:42HPI/Events of Note Overnight events.Called early during the shift for cough and insomnia.Plan: Ordered Robitussi n DM prn, and Melatonin qhs prn.Interventions Intermediate-Other: cough; insomniaElectronically Jenn d by: ÁNGEL HOUGH) on 08/12/2019 06:43
--- NOTE | 2019-08-12 08:53 | PCM.PN ---
<Nicholas Charles M - Last Filed: 08/12/19 11:58> - General Info Date of Service: 08/12/19 Subjective Update: No complaints overnight. Denies fevers, chills, shortness of breath, nausea or vomiting. Reports tolerating oral diet well and having bowel movements. - Patient Data Vitals - Most Recent: Last Vital Signs Temp 98.6 F 08/12/19 07:00 Pulse 65 08/12/19 07:00 Resp 16 08/12/19 07:00 BP 95/60 08/12/19 07:00 Pulse Ox 98 08/12/19 07:00 Weight - Most Recent: 91.796 kg I&O - Last 24 Hours: Intake & Output 08/11/19 08/12/19 08/12/19 22:59 06:59 14:59 Intake Total 3103 2978 Output Total 1999 2750 Balance 1103 228 Lab Results Last 24 Hours: Laboratory Results - last 24 hr 08/12/19 08/12/19 Range/Units 06:05 06:05 WBC 10.23 (4.0-11.0) K/uL RBC 4.33 L (4.50-5.90) M/uL Hgb 13.7 (13.0-17.0) g/dL Hct 39.6 (38.0-50.0) % MCV 91.5 (80.0-98.0) fL MCH 31.6 (27.0-32.0) pg MCHC 34.6 (31.0-37.0) g/dL RDW Std Deviation 42.2 (28.0-62.0) fl RDW Coeff of Hussain 12 (11.0-15.0) % Plt Count 211 (150-400) K/uL MPV 9.30 (7.40-12.00) fL Neut % (Auto) 67.6 (48.0-80.0) % Lymph % (Auto) 19.1 (16.0-40.0) % Leake % (Auto) 12.1 (0.0-15.0) % Eos % (Auto) 1.0 (0.0-7.0) % Baso % (Auto) 0.2 (0.0-1.5) % Neut # (Auto) 6.9 H (1.4-5.7) K/uL Lymph # (Auto) 2.0 (0.6-2.4) K/uL Leake # (Auto) 1.2 H (0.0-0.8) K/uL Eos # (Auto) 0.1 (0.0-0.7) K/uL Baso # (Auto) 0.0 (0.0-0.1) K/uL Nucleated RBC % 0.0 /100WBC Nucleated RBCs # 0 K/uL Sodium 138 (136-148) mmol/L Potassium 3.7 (3.5-5.1) mmol/L Chloride 108 H (98-107) mmol/L Carbon Dioxide 25.3 (21.0-32.0) mmol/L BUN 14 (7.0-18.0) mg/dL Creatinine 1.2 (0.8-1.3) mg/dL Est Cr Clr Drug Dosing 76.34 mL/min Estimated GFR (MDRD) > 60.0 ml/min Glucose 114 H (74-106) mg/dL Calcium 8.4 L (8.5-10.1) mg/dL Nate Results Last 24 Hours: Microbiology 08/09/19 23:55 Aerobic Blood Culture - Preliminary Blood - Venous - Lab Draw NO GROWTH AFTER 2 DAYS Anaerobic Blood Culture - Preliminary NO GROWTH AFTER 2 DAYS 08/09/19 23:45 Aerobic Blood Culture - Preliminary Blood - Venous NO GROWTH AFTER 2 DAYS Anaerobic Blood Culture - Preliminary NO GROWTH AFTER 2 DAYS 08/10/19 02:00 Coronavirus RNA (PCR) - Final Nasal Aspirate, Left Med Orders - Current: Current Medications Acetaminophen (Tylenol) 650 mg PO Q6H PRN PRN Reason: Pain Last Admin: 08/10/19 03:44 Dose: 650 mg Calcium Carbonate/Glycine (Tums) 500 mg PO TID PRN PRN Reason: Indigestion Last Admin: 08/10/19 20:13 Dose: 1,000 mg Enoxaparin Sodium (Lovenox) 40 mg SUBCUT Q24H [facility] Last Admin: 08/12/19 04:07 Dose: 40 mg Guaifenesin/Dextromethorphan (Robitussin Dm) 10 ml PO Q4H PRN PRN Reason: Cough Last Admin: 08/11/19 22:01 Dose: 10 ml Sodium Chloride (Normal Saline) 1,000 mls @ 125 mls/hr IV ASDIRECTED [facility] Last Admin: 08/12/19 04:07 Dose: 125 mls/hr Norepinephrine Bitartrate (Norepinephr-0.9% Nacl 4 Mg/250) 4 mg in 250 mls @ 7.5 mls/hr IV TITRATE [facility]; Protocol Last Titration: 08/11/19 04:00 Dose: 0 mcg/min, 0 mls/hr Levofloxacin/Dextrose 750 mg/ (Premix) 150 mls @ 100 mls/hr IV Q24H [facility] Last Admin: 08/12/19 01:03 Dose: 100 mls/hr Piperacillin Sod/Tazobactam (Sod 3.375 gm/ Sodium Chloride) 50 mls @ 100 mls/ hr IV Q6H [facility] Last Admin: 08/12/19 02:37 Dose: 100 mls/hr Ibuprofen (Motrin) 400 mg PO Q6H PRN PRN Reason: Pain Last Admin: 08/12/19 03:14 Dose: 400 mg Melatonin (Melatonin) 6 mg PO BEDTIME PRN PRN Reason: Insomnia Last Admin: 08/11/19 22:01 Dose: 6 mg Omeprazole (Omeprazole) 20 mg PO ACBREAKFAST [facility] Last Admin: 08/12/19 06:29 Dose: 20 mg Oxycodone HCl (Oxycodone) 5 mg PO Q4H PRN PRN Reason: Pain Last Admin: 08/10/19 17:15 Dose: 5 mg Discontinued Medications Acetaminophen (Tylenol) Confirm Administered Dose 650 mg .ROUTE .STK-MED ONE Stop: 08/10/19 03:40 Last Admin: 08/10/19 03:43 Dose: Not Given Sodium Chloride (Normal Saline) 1,000 mls @ 500 mls/hr IV ASDIRECTED [facility] Last Admin: 08/09/19 23:01 Dose: 500 mls/hr Sodium Chloride (Normal Saline) 1,000 mls @ 999 mls/hr IV ASDIRECTED [facility] Last Admin: 08/10/19 00:28 Dose: 999 mls/hr Levofloxacin/Dextrose 750 mg/ (Premix) 150 mls @ 100 mls/hr IV ONETIME ONE Stop: 08/10/19 03:06 Last Admin: 08/10/19 01:55 Dose: 100 mls/hr Sodium Chloride (Normal Saline) 1,000 mls @ 999 mls/hr IV ASDIRECTED [facility] Sodium Chloride (Normal Saline) 1,000 mls @ 999 mls/hr IV .Bolus ONE Stop: 08/10/19 02:00 Last Admin: 08/10/19 02:02 Dose: 999 mls/hr Iopamidol (Isovue-370 (76%)) 100 ml IVPUSH ONETIME STA Stop: 08/10/19 00:16 Last Admin: 08/10/19 00:24 Dose: 100 ml Ketorolac Tromethamine (Toradol) 30 mg IVPUSH ONETIME ONE Stop: 08/09/19 23:12 Last Admin: 08/09/19 23:12 Dose: 30 mg Metoclopramide HCl (Reglan) 5 mg IVPUSH ONETIME ONE Stop: 08/11/19 00:03 Last Admin: 08/11/19 00:24 Dose: Not Given Metoclopramide HCl (Reglan) 5 mg IVPUSH ONETIME ONE Stop: 08/11/19 04:26 Last Admin: 08/11/19 04:33 Dose: 5 mg Omeprazole (Omeprazole) 20 mg PO DAILY [facility] Last Admin: 08/10/19 10:03 Dose: 20 mg - Exam General: Alert, Oriented, Cooperative, No Acute Distress Lungs: Clear to Auscultation, Normal Respiratory Effort Cardiovascular: Regular Rate, Regular Rhythm GI/Abdominal Exam: Normal Bowel Sounds, Soft, Non-Tender, No Distention Extremities: Normal Inspection, No Pedal Edema Skin: Warm, Dry, Intact Sepsis Event Note - Evaluation Sepsis Screening Result: Sepsis Risk - Focused Exam Vital Signs: Vital Signs Temp Pulse Resp BP Pulse Ox Pulse Ox 08/12/19 07:00 98.6 F 65 16 95/60 98 08/12/19 06:00 99.0 F 85 20 105/71 96 08/12/19 05:00 99.0 F 80 16 112/69 96 08/12/19 04:41 95 08/12/19 04:00 99.3 F 82 16 120/80 98 08/12/19 03:00 99.0 F 90 16 108/65 96 08/12/19 02:00 99.3 F 88 16 118/80 98 08/12/19 01:00 99.7 F 85 19 113/72 95 08/12/19 00:00 99.1 F 85 20 110/61 96 08/11/19 23:00 99.0 F 90 14 106/61 93 L 08/11/19 22:00 99.1 F 98 15 128/80 95 08/11/19 21:00 99.5 F 90 14 99/55 L 96 Date Exam was Performed: 08/12/19 Time Exam was Performed: 11:58 - Problem List Review Problem List Initiated/Reviewed/Updated: Yes - Plan Plan:: Assessment and Plan: 1. Septic shock secondary to community acquired pneumonia: - Vitals stable overnight and did not require levophed. Will downgrade to med/ surg floor today. Will discontinue IV levaquin and zosyn and start PO levaquin. Blood cultures negative. COVID 19 negative and influenza negative. 2. Leukocytosis secondary to #1, resolved. 3. DVT prophylaxis: lovenox. <Jamie Miranda - Last Filed: 08/25/19 14:44> - Patient Data Vitals - Most Recent: Last Vital Signs Temp 36.6 C 08/13/19 08:25 Pulse 80 08/13/19 07:27 Resp 16 08/13/19 07:27 BP 129/76 08/13/19 07:27 Pulse Ox 95 08/13/19 07:27 Med Orders - Current: Current Medications Discontinued Medications Acetaminophen (Tylenol) 650 mg PO Q6H PRN PRN Reason: Pain Last Admin: 08/10/19 03:44 Dose: 650 mg Acetaminophen (Tylenol) Confirm Administered Dose 650 mg .ROUTE .STK-MED ONE Stop: 08/10/19 03:40 Last Admin: 08/10/19 03:43 Dose: Not Given Azithromycin (Zithromax) 500 mg PO Q24H [facility] Last Admin: 08/12/19 13:03 Dose: Not Given Calcium Carbonate/Glycine (Tums) 500 mg PO TID PRN PRN Reason: Indigestion Last Admin: 08/10/19 20:13 Dose: 1,000 mg Cefdinir (Omnicef) 300 mg PO BID [facility] Last Admin: 08/12/19 13:03 Dose: Not Given Enoxaparin Sodium (Lovenox) 40 mg SUBCUT Q24H [facility] Last Admin: 08/13/19 04:04 Dose: 40 mg Guaifenesin/Dextromethorphan (Robitussin Dm) 10 ml PO Q4H PRN PRN Reason: Cough Last Admin: 08/12/19 21:43 Dose: 10 ml Sodium Chloride (Normal Saline) 1,000 mls @ 500 mls/hr IV ASDIRECTED [facility] Last Admin: 08/09/19 23:01 Dose: 500 mls/hr Sodium Chloride (Normal Saline) 1,000 mls @ 999 mls/hr IV ASDIRECTED [facility] Last Admin: 08/10/19 00:28 Dose: 999 mls/hr Levofloxacin/Dextrose 750 mg/ (Premix) 150 mls @ 100 mls/hr IV ONETIME ONE Stop: 08/10/19 03:06 Last Admin: 08/10/19 01:55 Dose: 100 mls/hr Sodium Chloride (Normal Saline) 1,000 mls @ 999 mls/hr IV ASDIRECTED [facility] Sodium Chloride (Normal Saline) 1,000 mls @ 999 mls/hr IV .Bolus ONE Stop: 08/10/19 02:00 Last Admin: 08/10/19 02:02 Dose: 999 mls/hr Sodium Chloride (Normal Saline) 1,000 mls @ 125 mls/hr IV ASDIRECTED [facility] Last Admin: 08/12/19 04:07 Dose: 125 mls/hr Norepinephrine Bitartrate (Norepinephr-0.9% Nacl 4 Mg/250) 4 mg in 250 mls @ 7.5 mls/hr IV TITRATE [facility]; Protocol Last Titration: 08/11/19 04:00 Dose: 0 mcg/min, 0 mls/hr Levofloxacin/Dextrose 750 mg/ (Premix) 150 mls @ 100 mls/hr IV Q24H [facility] Last Admin: 08/12/19 01:03 Dose: 100 mls/hr Piperacillin Sod/Tazobactam (Sod 3.375 gm/ Sodium Chloride) 50 mls @ 100 mls/ hr IV Q6H [facility] Last Admin: 08/12/19 08:50 Dose: 100 mls/hr Ibuprofen (Motrin) 400 mg PO Q6H PRN PRN Reason: Pain Last Admin: 08/13/19 08:26 Dose: 400 mg Iopamidol (Isovue-370 (76%)) 100 ml IVPUSH ONETIME STA Stop: 08/10/19 00:16 Last Admin: 08/10/19 00:24 Dose: 100 ml Ketorolac Tromethamine (Toradol) 30 mg IVPUSH ONETIME ONE Stop: 08/09/19 23:12 Last Admin: 08/09/19 23:12 Dose: 30 mg Levofloxacin (Levaquin) 750 mg PO Q24H [facility] Last Admin: 08/12/19 13:03 Dose: Not Given Levofloxacin (Levaquin) 750 mg PO Q24H [facility] Last Admin: 08/12/19 20:48 Dose: 750 mg Melatonin (Melatonin) 6 mg PO BEDTIME PRN PRN Reason: Insomnia Last Admin: 08/11/19 22:01 Dose: 6 mg Metoclopramide HCl (Reglan) 5 mg IVPUSH ONETIME ONE Stop: 08/11/19 00:03 Last Admin: 08/11/19 00:24 Dose: Not Given Metoclopramide HCl (Reglan) 5 mg IVPUSH ONETIME ONE Stop: 08/11/19 04:26 Last Admin: 08/11/19 04:33 Dose: 5 mg Omeprazole (Omeprazole) 20 mg PO DAILY [facility] Last Admin: 08/10/19 10:03 Dose: 20 mg Omeprazole (Omeprazole) 20 mg PO ACBREAKFAST [facility] Last Admin: 08/13/19 07:41 Dose: 20 mg Oxycodone HCl (Oxycodone) 5 mg PO Q4H PRN PRN Reason: Pain Last Admin: 08/10/19 17:15 Dose: 5 mg - Plan Plan:: Patient was seen and examined by me along with the resident. Agree with the above outlined management plan.
[2019-08-12] MEDS ORDERED: Azithromycin 250 MG Tab PO SCH (10:00)
[2019-08-12] MEDS ORDERED: Cefdinir 300 MG Cap PO SCH (10:00)
[2019-08-12] MEDS ORDERED: Levofloxacin 250 MG Tab PO SCH ×2 (10:15→21:00)
[2019-08-12] MEDS: guaiFENesin/Dextromethorphan 100-10 MG/5 ML Soln 10 ML Cup PO PRN (21:43)
[2019-08-13] MEDS: Enoxaparin 40 MG/0.4 ML Syringe SUBCUT SCH (04:04)
[2019-08-13 06:44] LABS: CARBON DIOXIDE,CO2 28.2 mmol/L (21.0-32.0); POTASSIUM,K 4.1 mmol/L (3.5-5.1)
[2019-08-13] MEDS: Omeprazole 20 MG Cap.CR PO SCH (07:41)
[2019-08-13] MEDS: Ibuprofen 400 MG Tab PO PRN (08:26)
--- NOTE | 2019-08-13 12:09 | PCM.DCSUM1 ---
<Nicholas Charles - Last Filed: 08/13/19 18:03> Discharge Summary - Hospital Course Free Text/Narrative:: 53-year-old male admitted for septic shock secondary to community acquired pneumonia. He was admitted to the ICU and started on levophed drip, IV zosyn and IV levaquin. CXR on admission showed b/l basilar atelectasis. CT chest showed LLL pneumonia. Blood cultures were negative. Influenza and COVID19 testing were negative. Patient was eventually weaned off of levophed and downgraded to med/surg floor once blood pressures stabilized. He was transitioned to PO levaquin and discharged on 3 more days of levaquin. Patient discharged in stable condition and advised to follow-up with his PCP. Diagnosis: Stroke: No - Discharge Data Discharge Date: 08/13/19 Discharge Disposition: Home, Self-Care 01 Condition: Stable - Referral to Home Health Primary Care Physician: Keaton Zhou MD - Patient Instructions Diet: Regular Diet as Tolerated Activity: As Tolerated, No Strenuous Activities, Rest and Relax Today Showering/Bathing: May Shower Notify Provider of: Fever, Increased Pain, Swelling and Redness, Drainage, Nausea and/or Vomiting - Discharge Plan *PRESCRIPTION DRUG MONITORING PROGRAM REVIEWED*: Not Applicable *COPY OF PRESCRIPTION DRUG MONITORING REPORT IN PATIENT ANNEL: Not Applicable Prescriptions/Med Rec: levoFLOXacin [Levaquin] 750 mg PO DAILY #3 tab Home Medications: Home Meds Ibuprofen 400 mg PO DAILY PRN 08/09/19 [History] Omeprazole Magnesium [Prilosec Otc] 20 mg PO DAILY 08/09/19 [History] levoFLOXacin [Levaquin] 750 mg PO DAILY #3 tab 08/13/19 [Rx] Oxygen Therapy Mode: Room Air Patient Handouts: Levofloxacin tablets, Community-Acquired Pneumonia, Adult, [id number] Referrals: [facility] [Outside] Keaton Zhou MD [Primary Care Provider] - 08/21/19 10:45 am (Arrive 15 minutes early with a photo ID and insurance card. ) - Discharge Summary/Plan Comment DC Time >30 min.: No - Patient Data Vitals - Most Recent: Last Vital Signs Temp 98 F 08/13/19 08:25 Pulse 80 08/13/19 07:27 Resp 16 08/13/19 07:27 BP 129/76 08/13/19 07:27 Pulse Ox 95 08/13/19 07:27 Weight - Most Recent: 91.796 kg I&O - Last 24 hours: Intake & Output 08/12/19 08/13/19 08/13/19 22:59 06:59 14:59 Intake Total 2630 3600 Output Total 2540 3900 Balance 90 -300 Lab Results - Last 24 hrs: Laboratory Results - last 24 hr 08/13/19 08/13/19 Range/Units 06:16 06:16 WBC 10.04 (4.0-11.0) K/uL RBC 4.85 (4.50-5.90) M/uL Hgb 15.6 (13.0-17.0) g/dL Hct 44.4 (38.0-50.0) % MCV 91.5 (80.0-98.0) fL MCH 32.2 H (27.0-32.0) pg MCHC 35.1 (31.0-37.0) g/dL RDW Std Deviation 41.9 (28.0-62.0) fl RDW Coeff of Hussain 12 (11.0-15.0) % Plt Count 254 (150-400) K/uL MPV 9.60 (7.40-12.00) fL Neut % (Auto) 63.8 (48.0-80.0) % Lymph % (Auto) 22.3 (16.0-40.0) % Greer % (Auto) 12.7 (0.0-15.0) % Eos % (Auto) 0.8 (0.0-7.0) % Baso % (Auto) 0.4 (0.0-1.5) % Neut # (Auto) 6.4 H (1.4-5.7) K/uL Lymph # (Auto) 2.2 (0.6-2.4) K/uL Greer # (Auto) 1.3 H (0.0-0.8) K/uL Eos # (Auto) 0.1 (0.0-0.7) K/uL Baso # (Auto) 0.0 (0.0-0.1) K/uL Nucleated RBC % 0.0 /100WBC Nucleated RBCs # 0 K/uL Sodium 142 (136-148) mmol/L Potassium 4.1 (3.5-5.1) mmol/L Chloride 106 (98-107) mmol/L Carbon Dioxide 28.2 (21.0-32.0) mmol/L BUN 15 (7.0-18.0) mg/dL Creatinine 1.3 (0.8-1.3) mg/dL Est Cr Clr Drug Dosing 70.47 mL/min Estimated GFR (MDRD) 57.3 ml/min Glucose 102 (74-106) mg/dL Calcium 9.2 (8.5-10.1) mg/dL COLLEEN Results - Last 24 hrs: Microbiology 08/09/19 23:55 Aerobic Blood Culture - Preliminary Blood - Venous - Lab Draw NO GROWTH AFTER 3 DAYS Anaerobic Blood Culture - Preliminary NO GROWTH AFTER 3 DAYS 08/09/19 23:45 Aerobic Blood Culture - Preliminary Blood - Venous NO GROWTH AFTER 3 DAYS Anaerobic Blood Culture - Preliminary NO GROWTH AFTER 3 DAYS Med Orders - Current: Current Medications Acetaminophen (Tylenol) 650 mg PO Q6H PRN PRN Reason: Pain Last Admin: 08/10/19 03:44 Dose: 650 mg Calcium Carbonate/Glycine (Tums) 500 mg PO TID PRN PRN Reason: Indigestion Last Admin: 08/10/19 20:13 Dose: 1,000 mg Enoxaparin Sodium (Lovenox) 40 mg SUBCUT Q24H RADHA Last Admin: 08/13/19 04:04 Dose: 40 mg Guaifenesin/Dextromethorphan (Robitussin Dm) 10 ml PO Q4H PRN PRN Reason: Cough Last Admin: 08/12/19 21:43 Dose: 10 ml Norepinephrine Bitartrate (Norepinephr-0.9% Nacl 4 Mg/250) 4 mg in 250 mls @ 7.5 mls/hr IV TITRATE RADHA; Protocol Last Titration: 08/11/19 04:00 Dose: 0 mcg/min, 0 mls/hr Ibuprofen (Motrin) 400 mg PO Q6H PRN PRN Reason: Pain Last Admin: 08/13/19 08:26 Dose: 400 mg Levofloxacin (Levaquin) 750 mg PO Q24H RADHA Last Admin: 08/12/19 20:48 Dose: 750 mg Melatonin (Melatonin) 6 mg PO BEDTIME PRN PRN Reason: Insomnia Last Admin: 08/11/19 22:01 Dose: 6 mg Omeprazole (Omeprazole) 20 mg PO ACBREAKFAST [facility] Last Admin: 08/13/19 07:41 Dose: 20 mg Oxycodone HCl (Oxycodone) 5 mg PO Q4H PRN PRN Reason: Pain Last Admin: 08/10/19 17:15 Dose: 5 mg Discontinued Medications Acetaminophen (Tylenol) Confirm Administered Dose 650 mg .ROUTE .STK-MED ONE Stop: 08/10/19 03:40 Last Admin: 08/10/19 03:43 Dose: Not Given Azithromycin (Zithromax) 500 mg PO Q24H [facility] Last Admin: 08/12/19 13:03 Dose: Not Given Cefdinir (Omnicef) 300 mg PO BID [facility] Last Admin: 08/12/19 13:03 Dose: Not Given Sodium Chloride (Normal Saline) 1,000 mls @ 500 mls/hr IV ASDIRECTED [facility] Last Admin: 08/09/19 23:01 Dose: 500 mls/hr Sodium Chloride (Normal Saline) 1,000 mls @ 999 mls/hr IV ASDIRECTED [facility] Last Admin: 08/10/19 00:28 Dose: 999 mls/hr Levofloxacin/Dextrose 750 mg/ (Premix) 150 mls @ 100 mls/hr IV ONETIME ONE Stop: 08/10/19 03:06 Last Admin: 08/10/19 01:55 Dose: 100 mls/hr Sodium Chloride (Normal Saline) 1,000 mls @ 999 mls/hr IV ASDIRECTED [facility] Sodium Chloride (Normal Saline) 1,000 mls @ 999 mls/hr IV .Bolus ONE Stop: 08/10/19 02:00 Last Admin: 08/10/19 02:02 Dose: 999 mls/hr Sodium Chloride (Normal Saline) 1,000 mls @ 125 mls/hr IV ASDIRECTED [facility] Last Admin: 08/12/19 04:07 Dose: 125 mls/hr Levofloxacin/Dextrose 750 mg/ (Premix) 150 mls @ 100 mls/hr IV Q24H [facility] Last Admin: 08/12/19 01:03 Dose: 100 mls/hr Piperacillin Sod/Tazobactam (Sod 3.375 gm/ Sodium Chloride) 50 mls @ 100 mls/ hr IV Q6H [facility] Last Admin: 08/12/19 08:50 Dose: 100 mls/hr Iopamidol (Isovue-370 (76%)) 100 ml IVPUSH ONETIME STA Stop: 08/10/19 00:16 Last Admin: 08/10/19 00:24 Dose: 100 ml Ketorolac Tromethamine (Toradol) 30 mg IVPUSH ONETIME ONE Stop: 08/09/19 23:12 Last Admin: 08/09/19 23:12 Dose: 30 mg Levofloxacin (Levaquin) 750 mg PO Q24H [facility] Last Admin: 08/12/19 13:03 Dose: Not Given Metoclopramide HCl (Reglan) 5 mg IVPUSH ONETIME ONE Stop: 08/11/19 00:03 Last Admin: 08/11/19 00:24 Dose: Not Given Metoclopramide HCl (Reglan) 5 mg IVPUSH ONETIME ONE Stop: 08/11/19 04:26 Last Admin: 08/11/19 04:33 Dose: 5 mg Omeprazole (Omeprazole) 20 mg PO DAILY [facility] Last Admin: 08/10/19 10:03 Dose: 20 mg <Jamie Miranda - Last Filed: 08/25/19 14:44> Discharge Summary - Hospital Course Free Text/Narrative:: Patient was seen and examined by me along with the resident. Agree with the above outlined management plan. - Referral to Home Health Primary Care Physician: Keaton Zhou MD - Patient Data Vitals - Most Recent: Last Vital Signs Temp 36.6 C 08/13/19 08:25 Pulse 80 08/13/19 07:27 Resp 16 08/13/19 07:27 BP 129/76 08/13/19 07:27 Pulse Ox 95 08/13/19 07:27 Med Orders - Current: Current Medications Discontinued Medications Acetaminophen (Tylenol) 650 mg PO Q6H PRN PRN Reason: Pain Last Admin: 08/10/19 03:44 Dose: 650 mg Acetaminophen (Tylenol) Confirm Administered Dose 650 mg .ROUTE .STK-MED ONE Stop: 08/10/19 03:40 Last Admin: 08/10/19 03:43 Dose: Not Given Azithromycin (Zithromax) 500 mg PO Q24H [facility] Last Admin: 08/12/19 13:03 Dose: Not Given Calcium Carbonate/Glycine (Tums) 500 mg PO TID PRN PRN Reason: Indigestion Last Admin: 08/10/19 20:13 Dose: 1,000 mg Cefdinir (Omnicef) 300 mg PO BID [facility] Last Admin: 08/12/19 13:03 Dose: Not Given Enoxaparin Sodium (Lovenox) 40 mg SUBCUT Q24H [facility] Last Admin: 08/13/19 04:04 Dose: 40 mg Guaifenesin/Dextromethorphan (Robitussin Dm) 10 ml PO Q4H PRN PRN Reason: Cough Last Admin: 08/12/19 21:43 Dose: 10 ml Sodium Chloride (Normal Saline) 1,000 mls @ 500 mls/hr IV ASDIRECTED [facility] Last Admin: 08/09/19 23:01 Dose: 500 mls/hr Sodium Chloride (Normal Saline) 1,000 mls @ 999 mls/hr IV ASDIRECTED [facility] Last Admin: 08/10/19 00:28 Dose: 999 mls/hr Levofloxacin/Dextrose 750 mg/ (Premix) 150 mls @ 100 mls/hr IV ONETIME ONE Stop: 08/10/19 03:06 Last Admin: 08/10/19 01:55 Dose: 100 mls/hr Sodium Chloride (Normal Saline) 1,000 mls @ 999 mls/hr IV ASDIRECTED [facility] Sodium Chloride (Normal Saline) 1,000 mls @ 999 mls/hr IV .Bolus ONE Stop: 08/10/19 02:00 Last Admin: 08/10/19 02:02 Dose: 999 mls/hr Sodium Chloride (Normal Saline) 1,000 mls @ 125 mls/hr IV ASDIRECTED [facility] Last Admin: 08/12/19 04:07 Dose: 125 mls/hr Norepinephrine Bitartrate (Norepinephr-0.9% Nacl 4 Mg/250) 4 mg in 250 mls @ 7.5 mls/hr IV TITRATE [facility]; Protocol Last Titration: 08/11/19 04:00 Dose: 0 mcg/min, 0 mls/hr Levofloxacin/Dextrose 750 mg/ (Premix) 150 mls @ 100 mls/hr IV Q24H [facility] Last Admin: 08/12/19 01:03 Dose: 100 mls/hr Piperacillin Sod/Tazobactam (Sod 3.375 gm/ Sodium Chloride) 50 mls @ 100 mls/ hr IV Q6H [facility] Last Admin: 08/12/19 08:50 Dose: 100 mls/hr Ibuprofen (Motrin) 400 mg PO Q6H PRN PRN Reason: Pain Last Admin: 08/13/19 08:26 Dose: 400 mg Iopamidol (Isovue-370 (76%)) 100 ml IVPUSH ONETIME STA Stop: 08/10/19 00:16 Last Admin: 08/10/19 00:24 Dose: 100 ml Ketorolac Tromethamine (Toradol) 30 mg IVPUSH ONETIME ONE Stop: 08/09/19 23:12 Last Admin: 08/09/19 23:12 Dose: 30 mg Levofloxacin (Levaquin) 750 mg PO Q24H [facility] Last Admin: 08/12/19 13:03 Dose: Not Given Levofloxacin (Levaquin) 750 mg PO Q24H [facility] Last Admin: 08/12/19 20:48 Dose: 750 mg Melatonin (Melatonin) 6 mg PO BEDTIME PRN PRN Reason: Insomnia Last Admin: 08/11/19 22:01 Dose: 6 mg Metoclopramide HCl (Reglan) 5 mg IVPUSH ONETIME ONE Stop: 08/11/19 00:03 Last Admin: 08/11/19 00:24 Dose: Not Given Metoclopramide HCl (Reglan) 5 mg IVPUSH ONETIME ONE Stop: 08/11/19 04:26 Last Admin: 08/11/19 04:33 Dose: 5 mg Omeprazole (Omeprazole) 20 mg PO DAILY [facility] Last Admin: 08/10/19 10:03 Dose: 20 mg Omeprazole (Omeprazole) 20 mg PO ACBREAKFAST [facility] Last Admin: 08/13/19 07:41 Dose: 20 mg Oxycodone HCl (Oxycodone) 5 mg PO Q4H PRN PRN Reason: Pain Last Admin: 08/10/19 17:15 Dose: 5 mg
== END 2019-08-13 11:48 | disposition home or self-care (01) | DRG 720 ==
LOC: MW.ED 21:26 → MW.ICU 08-10 02:03 → MW.MS 08-12 16:26
PROVIDERS: ADMIT Internal Medicine; ATTEND Internal Medicine
DX: A41.9 Sepsis, unspecified organism (principal); R65.21 Severe sepsis with septic shock; J18.9 Pneumonia, unspecified organism; K21.9 Gastro-esophageal reflux disease without esophagitis; Z88.1 Allergy status to other antibiotic agents; Z88.8 Allergy status to other drugs, medicaments and biological substances; Z79.899 Other long term (current) drug therapy; Z20.828 Contact with and (suspected) exposure to other viral communicable diseases
CPT/HCPCS: 36415; 71046; 71046-26; 71275; 71275-26; 80048; 80053; 81001; 83605; 83615; 85025; 87040; 87804; 93005; 96361; 96374; 96375; 99284; 99285-25; A9270-GY; J1650; J1885; J1956; J2543; J2765; J7030; J7050; Q9967; U0001; U0002

== ENCOUNTER 2025-04-30 09:19 | Day surgery (SDC) | payer BC ==
[~2025-04-30 09:19] MED LIST: propofoL 500 MG/50 ML 50 ML ONE
[2025-04-30] MEDS: Lactated Ringers 1,000 ML IV SCH (10:02)
[2025-04-30] MEDS ORDERED: Propofol 200 MG/20 ML SDV ONE (10:43)
[2025-04-30] MEDS ORDERED: Lactated Ringers 1,000 ML IV SCH (11:15)
== END 2025-04-30 12:05 | disposition home or self-care (01) ==
LOC: MW.SDS 09:19
PROVIDERS: ATTEND Surgery
DX: Z12.11 Encounter for screening for malignant neoplasm of colon (principal); D12.2 Benign neoplasm of ascending colon; D12.5 Benign neoplasm of sigmoid colon; K57.30 Diverticulosis of large intestine without perforation or abscess without bleeding; K64.9 Unspecified hemorrhoids; Z80.0 Family history of malignant neoplasm of digestive organs; Z88.8 Allergy status to other drugs, medicaments and biological substances; Z79.899 Other long term (current) drug therapy
CPT/HCPCS: 45380; 45385; J2704; J7120; 00811